=== PATIENT | male | born 1965 | race Two or more races ===

== ENCOUNTER 2022-11-28 12:26 | Emergency (ER) | payer MEDICAID ==
[~2022-11-28] VITALS: Ht 170.2 cm; Wt 117.9 kg
[2022-11-28] MEDS ORDERED: IBUPROFEN 600 MG TABLET PO ONE (14:00)
[2022-11-28] MEDS ORDERED: TDAP [DIPH/PERTUSSIS/TET] 0.5 ML VIAL IM ONE ×2 (14:00→14:03)
[2022-11-28] MEDS ORDERED: CEPH500T PO (14:02)
[2022-11-28] MEDS ORDERED: IBUP-1953 PO (14:02)
[2022-11-28] MEDS ORDERED: IBUPROFEN 600 MG TABLET ONE (14:03)
[2022-11-28 14:16] VITALS: BP 135/85; TEMP 98.1; O2SAT 100
== END 2022-11-28 14:11 | disposition home or self-care (01) ==
LOC: ER 12:29
DX: S61.215A Laceration without foreign body of left ring finger without damage to nail, initial encounter (principal); W27.0XXA Contact with workbench tool, initial encounter; Y93.89 Activity, other specified; Y92.89 Other specified places as the place of occurrence of the external cause; Y99.8 Other external cause status
CPT/HCPCS: 73140-TC; 90715